=== PATIENT | female | born 1935 | race Asian ===

== ENCOUNTER 2019-07-10 17:05 | Inpatient (IN) | payer MEDICARE, OTHER ==
[~2019-07-10] VITALS: Ht 162.6 cm; Wt 52.2 kg
[2019-07-10] MEDS ORDERED: LEVO50 PO (18:39)
[2019-07-10] MEDS ORDERED: FOLI1 PO (18:39)
[2019-07-10] MEDS ORDERED: FOLI1TAB85 PO (18:39)
[2019-07-10] MEDS ORDERED: NUT.237L66 PO (18:39)
[2019-07-10] MEDS ORDERED: MIRT-92 PO (18:39)
[2019-07-10] MEDS ORDERED: GUAI120S43 PO (18:39)
[2019-07-10] MEDS ORDERED: HYDR-3831 PO (18:39)
[2019-07-10] MEDS ORDERED: MACR100 PO (18:39)
[2019-07-10] MEDS ORDERED: CLOP75TA3 PO (18:39)
[2019-07-10] MEDS ORDERED: ASPI-728 PO (18:39)
[2019-07-10] MEDS ORDERED: SENN8.6T20 PO (18:39)
[2019-07-10] MEDS ORDERED: SEVE0.8P6 PO (18:39)
[2019-07-10] MEDS ORDERED: LACT30L PO (18:39)
[2019-07-10] MEDS ORDERED: ADV100 IH (18:39)
[2019-07-10] MEDS ORDERED: MORPHINE SULFATE 2 MG/ML SYRINGE IVP PRN (19:15)
[2019-07-10] MEDS ORDERED: ACETAMINOPHEN 325 MG TABLET PO PRN (19:15)
[2019-07-10] MEDS ORDERED: DEXTROSE 50%-WATER 25 GM/50 ML SYRINGE IVP PRN (19:15)
[2019-07-10 20:57] LABS: BASOPHILS % (AUTO) 0.5 % (0.0-2.0); EOSINOPHILS % (AUTO) 1.8 % (1.0-6.0); HEMATOCRIT 36.2 % (36-46); HEMOGLOBIN 11.5 g/dL (12.0-16.0); LYMPHOCYTES # (AUTO) 0.9 K/uL (1.0-4.8); LYMPHOCYTES % (AUTO) 10.2 % (22.0-44.0); MEAN CORPUSCULAR HEMOGLOBIN 32.8 pg (26.0-34.0); MEAN CORPUSCULAR HGB CONC 31.8 G/dL (31.0-37.0); MEAN CORPUSCULAR VOLUME 103 fL (80-100); MONOCYTES # (AUTO) 0.6 K/uL (0.1-1.0); MONOCYTES % (AUTO) 7.1 % (2.0-9.0); NEUTROPHILS % (AUTO) 80.4 % (40.0-70.0); PLATELET COUNT (AUTO) 129 K/uL (150-450); RED BLOOD CELL COUNT(AUTO) 3.51 MIL/uL (4.00-5.20); RED CELL DISTRIBUTION WIDTH 21.4 % (11.5-14.5)
[2019-07-10] MEDS: DOCUSATE SODIUM 100 MG CAPSULE PO SCH (21:00)
[2019-07-10 21:05] LABS: CALCIUM, TOTAL 9.5 mg/dL (8.8-10.5); CREATININE 3.96 mg/dL (0.60-1.30); POTASSIUM 5.7 mmol/L (3.5-5.1)
[2019-07-11 02:40] VITALS: BP 114/64
[2019-07-11 04:22] VITALS: BP 102/56
[2019-07-11 08:13] VITALS: BP 99/49
[2019-07-11 08:24] LABS: CALCIUM, TOTAL 9.3 mg/dL (8.8-10.5); CREATININE 4.89 mg/dL (0.60-1.30)
[2019-07-11] MEDS ORDERED: SODIUM CHLORIDE 0.9% 1,000 ML IV ONE (08:30)
[2019-07-11] MEDS ORDERED: BACITRACIN 50,000 UNITS/VIAL ONE (08:40)
[2019-07-11] MEDS ORDERED: SODIUM CL IRRIG SOLN BAG 0 ML IRRIG ONE (08:40)
[2019-07-11] MEDS ORDERED: BUPIVACAINE HCL/PF 0.25% 30 ML VIAL ONE (08:40)
[2019-07-11] MEDS ORDERED: LIDOCAINE/PF 1% 30 ML VIAL ONE (08:40)
[2019-07-11 08:42] LABS: POTASSIUM 6.1 mmol/L (3.5-5.1)
[2019-07-11] MEDS: FAMOTIDINE 20 MG TABLET PO SCH (09:00)
[2019-07-11] MEDS: DOCUSATE SODIUM 100 MG CAPSULE PO SCH ×2 (09:00→21:00)
[2019-07-11 11:25] VITALS: BP 112/60
[2019-07-11 12:00] VITALS: BP 100/63
[2019-07-11] MEDS: HEPARIN SODIUM,PORCINE 5,000 UNITS/ML VIAL SQ SCH ×2 (12:08→21:00)
[2019-07-11] MEDS: INSULIN LISPRO 100 UNITS/ML SQ PRN (12:12)
[2019-07-11] MEDS ORDERED: HEPARIN SODIUM,PORCINE 1,000 UNITS/ML VIAL IVP ONE (18:25)
[2019-07-11] MEDS ORDERED: DiphenhydrAMINE HCL 50 MG/ML VIAL IM ONE (18:25)
[2019-07-11 20:44] VITALS: BP 90/55
[2019-07-11] MEDS ORDERED: SODIUM CHLORIDE 0.9% 500 ML IV ONE (21:30)
[2019-07-11] MEDS ORDERED: MIDODRINE HCL 5 MG TABLET PO PRN (21:30)
[2019-07-11 21:36] LABS: GLUCOMETER DEV NAME(LOC) 5S.2A; GLUCOSE,POINT OF CARE 172 MG/DL (70-110)
[2019-07-11 21:36] LABS: GLUCOMETER DEV NAME(LOC) 5S.2A; GLUCOSE,POINT OF CARE 153 MG/DL (70-110)
[2019-07-11] MEDS ORDERED: ALBUMIN HUMAN 25%-25GM/100ML 100 ML IV PRN (23:15)
[2019-07-12] VITALS (7 sets, daily range): BP systolic 99–114; BP diastolic 45–61
[2019-07-12 02:53] LABS: GLUCOMETER DEV NAME(LOC) 5N.2; GLUCOSE,POINT OF CARE 177 MG/DL (70-110)
[2019-07-12 02:53] LABS: GLUCOMETER DEV NAME(LOC) 5N.2; GLUCOSE,POINT OF CARE 157 MG/DL (70-110)
[2019-07-12] MEDS ORDERED: PNEUMOCOCCAL VACCINE POLYVALENT 0.5 ML VIAL [PPSV23] IM ONE (03:45)
[2019-07-12] MEDS ORDERED: INFLUENZA VIRUS VACCINE QVS 2019-20 (3YR+)/PF 60 MCG/0.5 ML SYRINGE IM ONE (03:45)
[2019-07-12] MEDS ORDERED: SODIUM CHLORIDE 0.9% 1,000 ML IV ONE (05:15)
[2019-07-12] MEDS ORDERED: SODIUM CL IRRIG SOLN BAG 3,000 ML IRRIG ONE (06:42)
[2019-07-12] MEDS ORDERED: BACITRACIN 50,000 UNITS/VIAL ONE (06:42)
[2019-07-12] MEDS ORDERED: BUPIVACAINE HCL/PF 0.25% 30 ML VIAL ONE (06:42)
[2019-07-12] MEDS ORDERED: LIDOCAINE/PF 1% 30 ML VIAL ONE ×2 (06:45→11:15)
[2019-07-12] MEDS ORDERED: SODIUM CHLORIDE 0.9% 1,000 ML IV SCH (06:45)
[2019-07-12] MEDS ORDERED: SODIUM CHLORIDE 0.9% 1,000 ML ONE (07:36)
[2019-07-12 07:46] LABS: BASOPHILS % (AUTO) 0.9 % (0.0-2.0); HEMATOCRIT 27.4 % (36-46); LYMPHOCYTES # (AUTO) 0.6 K/uL (1.0-4.8); LYMPHOCYTES % (AUTO) 9.5 % (22.0-44.0); MEAN CORPUSCULAR HEMOGLOBIN 32.8 pg (26.0-34.0); MEAN CORPUSCULAR HGB CONC 31.7 G/dL (31.0-37.0); MEAN CORPUSCULAR VOLUME 104 fL (80-100); MONOCYTES # (AUTO) 0.4 K/uL (0.1-1.0); MONOCYTES % (AUTO) 6.3 % (2.0-9.0); NEUTROPHILS # (AUTO) 4.9 K/uL (1.8-7.7); NEUTROPHILS % (AUTO) 82.3 % (40.0-70.0); PLATELET COUNT (AUTO) 90 K/uL (150-450); RED BLOOD CELL COUNT(AUTO) 2.65 MIL/uL (4.00-5.20)
[2019-07-12 07:50] LABS: GLUCOMETER DEV NAME(LOC) 5N.2; GLUCOSE,POINT OF CARE 168 MG/DL (70-110)
[2019-07-12 07:56] LABS: CALCIUM, TOTAL 8.2 mg/dL (8.8-10.5); CREATININE 2.44 mg/dL (0.60-1.30); POTASSIUM 4.4 mmol/L (3.5-5.1)
[2019-07-12 08:01] LABS: ALBUMIN 2.8 g/dL (3.4-5.0); BILIRUBIN,TOTAL 0.7 mg/dL (0.1-1.0)
[2019-07-12 08:14] LABS: HEMOGLOBIN 8.7 g/dL (12.0-16.0)
[2019-07-12 08:25] LABS: INR 1.1 (0.9-1.1)
[2019-07-12] MEDS: DOCUSATE SODIUM 100 MG CAPSULE PO SCH ×2 (09:00→21:00)
[2019-07-12] MEDS: FAMOTIDINE 20 MG TABLET PO SCH (09:00)
[2019-07-12] MEDS: EPOETIN ALFA 10,000 UNITS/ML VIAL SQ SCH (09:40)
[2019-07-12 10:10] LABS: % IRON SATURATION 14.8 % (22-44)
[2019-07-12] MEDS ORDERED: MICROFIBRILLAR COLLAGEN 1 GM PACKAGE TP ONE (11:25)
[2019-07-12 13:03] LABS: GLUCOMETER DEV NAME(LOC) 5S.2A; GLUCOSE,POINT OF CARE 128 MG/DL (70-110)
[2019-07-12] MEDS ORDERED: VANCOMYCIN HCL 1 GM/D5% WATER 200 ML IV PRN (16:00)
[2019-07-12] MEDS ORDERED: VANCOMYCIN HCL 1 GM/D5% WATER 200 ML IV ONE (16:00)
[2019-07-12 19:32] LABS: GLUCOMETER DEV NAME(LOC) 5N.2; GLUCOSE,POINT OF CARE 124 MG/DL (70-110)
[2019-07-12] MEDS: CefTAZidime PENTAHYDRATE 1 GM in DEXTROSE 5%-WATER 50 ML IV SCH (20:45)
[2019-07-13] VITALS (7 sets, daily range): BP systolic 98–124; BP diastolic 43–70
[2019-07-13 05:01] LABS: GLUCOMETER DEV NAME(LOC) 5N.2; GLUCOSE,POINT OF CARE 145 MG/DL (70-110)
[2019-07-13] MEDS: FAMOTIDINE 20 MG TABLET PO SCH (08:54)
[2019-07-13] MEDS: DOCUSATE SODIUM 100 MG CAPSULE PO SCH ×2 (08:54→21:00)
[2019-07-13 12:18] LABS: BASOPHILS % (AUTO) 0.6 % (0.0-2.0); EOSINOPHILS % (AUTO) 0.3 % (1.0-6.0); HEMATOCRIT 35.3 % (36-46); HEMOGLOBIN 11.2 g/dL (12.0-16.0); LYMPHOCYTES # (AUTO) 0.7 K/uL (1.0-4.8); LYMPHOCYTES % (AUTO) 6.8 % (22.0-44.0); MEAN CORPUSCULAR HEMOGLOBIN 32.7 pg (26.0-34.0); MEAN CORPUSCULAR HGB CONC 31.7 G/dL (31.0-37.0); MEAN CORPUSCULAR VOLUME 103 fL (80-100); MONOCYTES # (AUTO) 0.7 K/uL (0.1-1.0); MONOCYTES % (AUTO) 7.2 % (2.0-9.0); NEUTROPHILS # (AUTO) 8.6 K/uL (1.8-7.7); NEUTROPHILS % (AUTO) 85.1 % (40.0-70.0); PLATELET COUNT (AUTO) 106 K/uL (150-450); RED BLOOD CELL COUNT(AUTO) 3.43 MIL/uL (4.00-5.20); RED CELL DISTRIBUTION WIDTH 20.8 % (11.5-14.5)
[2019-07-13 12:31] LABS: BILIRUBIN,TOTAL 0.7 mg/dL (0.1-1.0); CALCIUM, TOTAL 8.5 mg/dL (8.8-10.5); CREATININE 4.45 mg/dL (0.60-1.30); MAGNESIUM 2.4 mg/dL (1.80-2.40); POTASSIUM 5.4 mmol/L (3.5-5.1); TOTAL PROTEIN, SERUM 6.1 g/dL (6.4-8.2); VANCOMYCIN,RANDOM 18.1 mcg/mL (25.0-50.0)
[2019-07-13] MEDS ORDERED: SODIUM CHLORIDE 0.9% 1,000 ML ONE (14:22)
[2019-07-13 17:26] LABS: GLUCOMETER DEV NAME(LOC) 5N.2; GLUCOSE,POINT OF CARE 126 MG/DL (70-110)
[2019-07-13 17:26] LABS: GLUCOMETER DEV NAME(LOC) 5N.2; GLUCOSE,POINT OF CARE 113 MG/DL (70-110)
[2019-07-13 20:52] LABS: GLUCOMETER DEV NAME(LOC) 5S.2A; GLUCOSE,POINT OF CARE 120 MG/DL (70-110)
[2019-07-13] MEDS: CefTAZidime PENTAHYDRATE 1 GM in DEXTROSE 5%-WATER 50 ML IV SCH (21:55)
[2019-07-14] VITALS (7 sets, daily range): BP systolic 72–108; BP diastolic 42–58
[2019-07-14 06:50] LABS: GLUCOMETER DEV NAME(LOC) 5S.2A; GLUCOSE,POINT OF CARE 108 MG/DL (70-110)
[2019-07-14 06:50] LABS: GLUCOMETER DEV NAME(LOC) 5S.2A; GLUCOSE,POINT OF CARE 98 MG/DL (70-110)
[2019-07-14] MEDS ORDERED: VANCOMYCIN HCL 1 GM/D5% WATER 200 ML IV ONE (08:00)
[2019-07-14] MEDS: FAMOTIDINE 20 MG TABLET PO SCH (09:00)
[2019-07-14] MEDS: DOCUSATE SODIUM 100 MG CAPSULE PO SCH ×2 (09:00→21:00)
[2019-07-14 09:22] LABS: BASOPHILS % (AUTO) 0.6 % (0.0-2.0); EOSINOPHILS % (AUTO) 1.6 % (1.0-6.0); HEMATOCRIT 34.2 % (36-46); HEMOGLOBIN 11.2 g/dL (12.0-16.0); LYMPHOCYTES # (AUTO) 0.5 K/uL (1.0-4.8); LYMPHOCYTES % (AUTO) 5.9 % (22.0-44.0); MEAN CORPUSCULAR HEMOGLOBIN 33.3 pg (26.0-34.0); MEAN CORPUSCULAR HGB CONC 32.6 G/dL (31.0-37.0); MEAN CORPUSCULAR VOLUME 102 fL (80-100); MONOCYTES # (AUTO) 0.6 K/uL (0.1-1.0); MONOCYTES % (AUTO) 6.5 % (2.0-9.0); NEUTROPHILS # (AUTO) 7.4 K/uL (1.8-7.7); PLATELET COUNT (AUTO) 107 K/uL (150-450); RED BLOOD CELL COUNT(AUTO) 3.35 MIL/uL (4.00-5.20); RED CELL DISTRIBUTION WIDTH 19.8 % (11.5-14.5)
[2019-07-14 09:24] LABS: NEUTROPHILS % (AUTO) 85.4 % (40.0-70.0)
[2019-07-14 09:40] LABS: ALBUMIN 2.6 g/dL (3.4-5.0); BILIRUBIN,TOTAL 0.7 mg/dL (0.1-1.0); CALCIUM, TOTAL 8.3 mg/dL (8.8-10.5); CREATININE 3.04 mg/dL (0.60-1.30); MAGNESIUM 1.8 mg/dL (1.80-2.40)
[2019-07-14] MEDS ORDERED: *CLINICAL-RX DOSING [ENTER DRUG IN COMMENTS] CLINICAL ONE (13:45)
[2019-07-14] MEDS ORDERED: SULFAMETHOX/TRIMETH DS 800-160 MG/TABLET PO SCH (13:45)
[2019-07-14] MEDS ORDERED: CefoTEtan DISOD 1 GM/DEXTROSE 50 ML IV ONE (16:00)
[2019-07-14] MEDS ORDERED: SODIUM CHLORIDE 0.9% 500 ML IV ONE (17:30)
[2019-07-14] MEDS: SULFAMETHOX/TRIMETH DS 800-160 MG/TABLET PO SCH (21:19)
[2019-07-14 22:19] LABS: GLUCOMETER DEV NAME(LOC) 5N.2; GLUCOSE,POINT OF CARE 149 MG/DL (70-110)
[2019-07-14 22:29] LABS: GLUCOMETER DEV NAME(LOC) 5S.2A; GLUCOSE,POINT OF CARE 210 MG/DL (70-110)
[2019-07-15 04:52] VITALS: BP 100/62
[2019-07-15 06:18] LABS: BASOPHILS % (AUTO) 0.7 % (0.0-2.0); EOSINOPHILS % (AUTO) 2.6 % (1.0-6.0); HEMATOCRIT 36.9 % (36-46); HEMOGLOBIN 11.8 g/dL (12.0-16.0); LYMPHOCYTES # (AUTO) 0.7 K/uL (1.0-4.8); LYMPHOCYTES % (AUTO) 7.5 % (22.0-44.0); MEAN CORPUSCULAR HEMOGLOBIN 32.6 pg (26.0-34.0); MEAN CORPUSCULAR HGB CONC 31.9 G/dL (31.0-37.0); MEAN CORPUSCULAR VOLUME 102 fL (80-100); MONOCYTES # (AUTO) 0.6 K/uL (0.1-1.0); MONOCYTES % (AUTO) 6.8 % (2.0-9.0); NEUTROPHILS # (AUTO) 7.6 K/uL (1.8-7.7); NEUTROPHILS % (AUTO) 82.4 % (40.0-70.0); PLATELET COUNT (AUTO) 102 K/uL (150-450); RED BLOOD CELL COUNT(AUTO) 3.61 MIL/uL (4.00-5.20); RED CELL DISTRIBUTION WIDTH 20.7 % (11.5-14.5)
[2019-07-15 06:51] LABS: ALBUMIN 3.1 g/dL (3.4-5.0); BILIRUBIN,TOTAL 0.5 mg/dL (0.1-1.0); CALCIUM, TOTAL 8.9 mg/dL (8.8-10.5); CREATININE 4.3 mg/dL (0.60-1.30); MAGNESIUM 2.2 mg/dL (1.80-2.40); PHOSPHORUS 4.9 mg/dL (2.5-4.9); TOTAL PROTEIN, SERUM 6.5 g/dL (6.4-8.2)
[2019-07-15 07:57] VITALS: BP 113/58
[2019-07-15] MEDS: FAMOTIDINE 20 MG TABLET PO SCH (09:00)
[2019-07-15] MEDS: DOCUSATE SODIUM 100 MG CAPSULE PO SCH ×2 (09:00→21:00)
[2019-07-15] MEDS: SULFAMETHOX/TRIMETH DS 800-160 MG/TABLET PO SCH (09:24)
[2019-07-15] MEDS: EPOETIN ALFA 10,000 UNITS/ML VIAL SQ SCH (09:25)
[2019-07-15 11:33] VITALS: BP 105/55
[2019-07-15] MEDS: INSULIN LISPRO 100 UNITS/ML SQ PRN ×2 (12:14→21:15)
[2019-07-15 15:46] VITALS: BP 101/57
[2019-07-15] MEDS: CefoTEtan DISODIUM 0.5 GM in DEXTROSE 5%-WATER 50 ML IV SCH (17:42)
[2019-07-15 20:06] VITALS: BP 96/63
[2019-07-15 22:04] LABS: GLUCOMETER DEV NAME(LOC) 5N.2; GLUCOSE,POINT OF CARE 241 MG/DL (70-110)
[2019-07-16 00:08] VITALS: BP 100/52
[2019-07-16 04:31] VITALS: BP 125/66
[2019-07-16] MEDS: INSULIN LISPRO 100 UNITS/ML SQ PRN ×2 (06:30→18:04)
[2019-07-16 06:34] LABS: BASOPHILS % (AUTO) 0.5 % (0.0-2.0); EOSINOPHILS % (AUTO) 2.3 % (1.0-6.0); HEMATOCRIT 34.6 % (36-46); HEMOGLOBIN 11.1 g/dL (12.0-16.0); LYMPHOCYTES # (AUTO) 0.6 K/uL (1.0-4.8); LYMPHOCYTES % (AUTO) 5.9 % (22.0-44.0); MEAN CORPUSCULAR HEMOGLOBIN 32.7 pg (26.0-34.0); MEAN CORPUSCULAR HGB CONC 32.1 G/dL (31.0-37.0); MEAN CORPUSCULAR VOLUME 102 fL (80-100); MONOCYTES # (AUTO) 0.6 K/uL (0.1-1.0); MONOCYTES % (AUTO) 5.9 % (2.0-9.0); NEUTROPHILS # (AUTO) 8.4 K/uL (1.8-7.7); PLATELET COUNT (AUTO) 111 K/uL (150-450); RED BLOOD CELL COUNT(AUTO) 3.39 MIL/uL (4.00-5.20); RED CELL DISTRIBUTION WIDTH 20.1 % (11.5-14.5)
[2019-07-16 06:48] LABS: NEUTROPHILS % (AUTO) 85.4 % (40.0-70.0)
[2019-07-16 07:08] LABS: ALBUMIN 2.9 g/dL (3.4-5.0); BILIRUBIN,TOTAL 0.4 mg/dL (0.1-1.0); CALCIUM, TOTAL 9.4 mg/dL (8.8-10.5); CREATININE 5.42 mg/dL (0.60-1.30); MAGNESIUM 2.4 mg/dL (1.80-2.40); POTASSIUM 4.1 mmol/L (3.5-5.1)
[2019-07-16 07:29] VITALS: BP 123/73
[2019-07-16] MEDS: DOCUSATE SODIUM 100 MG CAPSULE PO SCH ×2 (08:24→20:09)
[2019-07-16] MEDS: SULFAMETHOX/TRIMETH DS 800-160 MG/TABLET PO SCH (08:24)
[2019-07-16] MEDS: FAMOTIDINE 20 MG TABLET PO SCH (08:24)
[2019-07-16 11:47] LABS: GLUCOMETER DEV NAME(LOC) 5S.2A; GLUCOSE,POINT OF CARE 237 MG/DL (70-110)
[2019-07-16 11:47] LABS: GLUCOMETER DEV NAME(LOC) 5S.2A; GLUCOSE,POINT OF CARE 137 MG/DL (70-110)
[2019-07-16 11:47] LABS: GLUCOMETER DEV NAME(LOC) 5S.2A; GLUCOSE,POINT OF CARE 129 MG/DL (70-110)
[2019-07-16 11:48] LABS: GLUCOMETER DEV NAME(LOC) 5S.2A; GLUCOSE,POINT OF CARE 148 MG/DL (70-110)
[2019-07-16 11:49] LABS: GLUCOMETER DEV NAME(LOC) 5N.2; GLUCOSE,POINT OF CARE 139 MG/DL (70-110)
[2019-07-16 12:11] VITALS: BP 97/53
[2019-07-16 15:16] VITALS: BP 97/48
[2019-07-16] MEDS ORDERED: SODIUM CHLORIDE 0.9% 100 ML ONE (16:27)
[2019-07-16] MEDS: CefoTEtan DISOD 1 GM/DEXTROSE 50 ML IV SCH (16:34)
[2019-07-16 19:51] LABS: GLUCOMETER DEV NAME(LOC) 5S.2A; GLUCOSE,POINT OF CARE 190 MG/DL (70-110)
[2019-07-16] MEDS: HEPARIN SODIUM,PORCINE 5,000 UNITS/ML VIAL SQ SCH (20:09)
[2019-07-16 21:13] VITALS: BP 102/58
[2019-07-17] VITALS (8 sets, daily range): BP systolic 89–104; BP diastolic 49–70
[2019-07-17 08:29] LABS: GLUCOMETER DEV NAME(LOC) 5S.2A; GLUCOSE,POINT OF CARE 136 MG/DL (70-110)
[2019-07-17] MEDS: DOCUSATE SODIUM 100 MG CAPSULE PO SCH ×2 (08:39→20:43)
[2019-07-17] MEDS: EPOETIN ALFA 10,000 UNITS/ML VIAL SQ SCH (08:39)
[2019-07-17] MEDS: FAMOTIDINE 20 MG TABLET PO SCH (08:39)
[2019-07-17] MEDS: SULFAMETHOX/TRIMETH DS 800-160 MG/TABLET PO SCH (08:39)
[2019-07-17] MEDS: HEPARIN SODIUM,PORCINE 5,000 UNITS/ML VIAL SQ SCH ×2 (08:48→20:56)
[2019-07-17 11:29] LABS: GLUCOMETER DEV NAME(LOC) 5N.2; GLUCOSE,POINT OF CARE 109 MG/DL (70-110)
[2019-07-17] MEDS: INSULIN LISPRO 100 UNITS/ML SQ PRN (11:35)
[2019-07-17] MEDS ORDERED: SODIUM CHLORIDE 0.9% 250 ML IV ONE (13:47)
[2019-07-17 16:36] LABS: GLUCOMETER DEV NAME(LOC) 5N.2; GLUCOSE,POINT OF CARE 231 MG/DL (70-110)
[2019-07-17] MEDS: CefoTEtan DISODIUM 0.5 GM in DEXTROSE 5%-WATER 50 ML IV SCH (17:02)
[2019-07-17 17:36] LABS: GLUCOMETER DEV NAME(LOC) 5N.2; GLUCOSE,POINT OF CARE 147 MG/DL (70-110)
[2019-07-18 04:18] VITALS: BP 114/61
[2019-07-18 06:21] LABS: GLUCOMETER DEV NAME(LOC) 5N.2; GLUCOSE,POINT OF CARE 208 MG/DL (70-110)
[2019-07-18 06:22] LABS: GLUCOMETER DEV NAME(LOC) 5S.2A; GLUCOSE,POINT OF CARE 126 MG/DL (70-110)
[2019-07-18 06:53] LABS: EOSINOPHILS % (AUTO) 4.8 % (1.0-6.0); HEMATOCRIT 36.3 % (36-46); HEMOGLOBIN 11.4 g/dL (12.0-16.0); LYMPHOCYTES # (AUTO) 0.8 K/uL (1.0-4.8); LYMPHOCYTES % (AUTO) 13.3 % (22.0-44.0); MEAN CORPUSCULAR HEMOGLOBIN 32.1 pg (26.0-34.0); MEAN CORPUSCULAR HGB CONC 31.4 G/dL (31.0-37.0); MEAN CORPUSCULAR VOLUME 102 fL (80-100); MONOCYTES # (AUTO) 0.6 K/uL (0.1-1.0); MONOCYTES % (AUTO) 9.8 % (2.0-9.0); NEUTROPHILS # (AUTO) 4.3 K/uL (1.8-7.7); NEUTROPHILS % (AUTO) 71.1 % (40.0-70.0); PLATELET COUNT (AUTO) 103 K/uL (150-450); RED BLOOD CELL COUNT(AUTO) 3.54 MIL/uL (4.00-5.20)
[2019-07-18] MEDS ORDERED: SODIUM CHLORIDE 0.9% 2,000 ML ONE (08:21)
[2019-07-18] MEDS: SULFAMETHOX/TRIMETH DS 800-160 MG/TABLET PO SCH ×2 (08:26→16:03)
[2019-07-18] MEDS: DOCUSATE SODIUM 100 MG CAPSULE PO SCH ×2 (08:26→21:34)
[2019-07-18] MEDS: FAMOTIDINE 20 MG TABLET PO SCH (08:27)
[2019-07-18] MEDS: HEPARIN SODIUM,PORCINE 5,000 UNITS/ML VIAL SQ SCH ×2 (08:27→21:35)
[2019-07-18 08:28] LABS: ALBUMIN 2.7 g/dL (3.4-5.0); BILIRUBIN,TOTAL 0.4 mg/dL (0.1-1.0); CALCIUM, TOTAL 9.6 mg/dL (8.8-10.5); CREATININE 5.94 mg/dL (0.60-1.30); MAGNESIUM 2.9 mg/dL (1.80-2.40); POTASSIUM 4.8 mmol/L (3.5-5.1); TOTAL PROTEIN, SERUM 6.4 g/dL (6.4-8.2)
[2019-07-18 09:40] VITALS: BP 105/58
[2019-07-18 11:02] VITALS: BP 83/54
[2019-07-18 14:34] VITALS: BP 103/50
[2019-07-18 16:07] VITALS: BP 102/51
[2019-07-18] MEDS: CefoTEtan DISOD 1 GM/DEXTROSE 50 ML IV SCH (16:11)
[2019-07-18] MEDS: INSULIN LISPRO 100 UNITS/ML SQ PRN ×2 (17:18→21:34)
[2019-07-18 18:23] LABS: GLUCOMETER DEV NAME(LOC) 5S.2A; GLUCOSE,POINT OF CARE 300 MG/DL (70-110)
[2019-07-18 18:23] LABS: GLUCOMETER DEV NAME(LOC) 5S.2A; GLUCOSE,POINT OF CARE 114 MG/DL (70-110)
[2019-07-18 20:16] VITALS: BP 101/51
[2019-07-19 00:05] VITALS: BP 100/44
[2019-07-19 00:57] LABS: GLUCOMETER DEV NAME(LOC) 5N.2; GLUCOSE,POINT OF CARE 210 MG/DL (70-110)
[2019-07-19 04:56] VITALS: BP 105/60
[2019-07-19 05:30] LABS: GLUCOMETER DEV NAME(LOC) 5S.2A; GLUCOSE,POINT OF CARE 142 MG/DL (70-110)
[2019-07-19 06:05] LABS: GLUCOMETER DEV NAME(LOC) 5S.2A; GLUCOSE,POINT OF CARE 122 MG/DL (70-110)
[2019-07-19] MEDS: INSULIN LISPRO 100 UNITS/ML SQ PRN (06:05)
[2019-07-19 07:48] VITALS: BP 113/61
[2019-07-19] MEDS: FAMOTIDINE 20 MG TABLET PO SCH (08:39)
[2019-07-19] MEDS: EPOETIN ALFA 10,000 UNITS/ML VIAL SQ SCH (08:39)
[2019-07-19] MEDS: SULFAMETHOX/TRIMETH DS 800-160 MG/TABLET PO SCH (08:39)
[2019-07-19] MEDS: HEPARIN SODIUM,PORCINE 5,000 UNITS/ML VIAL SQ SCH (08:40)
[2019-07-19] MEDS: DOCUSATE SODIUM 100 MG CAPSULE PO SCH (08:41)
[2019-07-19] MEDS ORDERED: VITAMIN B COMP/VIT C/FOLIC ACID CAPSULE PO SCH (09:00)
[2019-07-19 12:03] VITALS: BP 98/55
[2019-07-19 15:20] VITALS: BP 104/59
[2019-07-20] MEDS ORDERED: CEFO1I IV (14:08)
[2019-07-20] MEDS ORDERED: CLOP75TA3 PO (14:08)
== END 2019-07-19 15:55 | DRG 616 ==
LOC: EMS 17:11 → 5S 07-11 03:07
PROVIDERS: ADMIT Internal Medicine; ATTEND Internal Medicine
PROC: 5A1D70Z Performance of Urinary Filtration, Intermittent, Less than 6 Hours Per Day (ICD-10-PCS; 2019-07-11)
PROC: 0Y6S0Z1 Detachment at Left 2nd Toe, High, Open Approach (ICD-10-PCS; 2019-07-12)
PROC: 0Y6U0Z1 Detachment at Left 3rd Toe, High, Open Approach (ICD-10-PCS; principal; 2019-07-12 07:30)
PROC: 5A1D70Z Performance of Urinary Filtration, Intermittent, Less than 6 Hours Per Day (ICD-10-PCS; 2019-07-13)
PROC: 5A1D70Z Performance of Urinary Filtration, Intermittent, Less than 6 Hours Per Day (ICD-10-PCS; 2019-07-16)
PROC: 5A1D70Z Performance of Urinary Filtration, Intermittent, Less than 6 Hours Per Day (ICD-10-PCS; 2019-07-18)
DX: E11.69 Type 2 diabetes mellitus with other specified complication (principal); E43 Unspecified severe protein-calorie malnutrition; E11.52 Type 2 diabetes mellitus with diabetic peripheral angiopathy with gangrene; Z68.1 Body mass index [BMI] 19.9 or less, adult; I47.1 Supraventricular tachycardia; M86.8X7 Other osteomyelitis, ankle and foot; I13.2 Hypertensive heart and chronic kidney disease with heart failure and with stage 5 chronic kidney disease, or end stage renal disease; I50.20 Unspecified systolic (congestive) heart failure; N18.6 End stage renal disease; N25.81 Secondary hyperparathyroidism of renal origin; E87.5 Hyperkalemia; F03.90 Unspecified dementia, unspecified severity, without behavioral disturbance, psychotic disturbance, mood disturbance, and anxiety; E78.5 Hyperlipidemia, unspecified; I48.91 Unspecified atrial fibrillation; E03.9 Hypothyroidism, unspecified; D63.1 Anemia in chronic kidney disease; Z66 Do not resuscitate; I49.5 Sick sinus syndrome; F32.9 Major depressive disorder, single episode, unspecified; J43.9 Emphysema, unspecified; I95.9 Hypotension, unspecified; E11.22 Type 2 diabetes mellitus with diabetic chronic kidney disease; E11.319 Type 2 diabetes mellitus with unspecified diabetic retinopathy without macular edema; I27.20 Pulmonary hypertension, unspecified; S92.512A Displaced fracture of proximal phalanx of left lesser toe(s), initial encounter for closed fracture; X58.XXXA Exposure to other specified factors, initial encounter; Z99.2 Dependence on renal dialysis; Z22.322 Carrier or suspected carrier of Methicillin resistant Staphylococcus aureus; Z79.4 Long term (current) use of insulin; Z83.3 Family history of diabetes mellitus; Z79.82 Long term (current) use of aspirin; Z79.51 Long term (current) use of inhaled steroids; Y93.89 Activity, other specified; Y92.89 Other specified places as the place of occurrence of the external cause; Y99.8 Other external cause status
CPT/HCPCS: 82271; 83540; 83550; 83735; 84100; 84132; 87070; 87081; 87205; 87340; 88305; 88311; 93005; 93306; J0690; J0713; J0885; J1200; J1644; J3370; J3490; J7030; J7040; J7050; J7060; P9046

== ENCOUNTER 2019-07-20 13:34 | Inpatient (IN) | payer MEDICARE, OTHER ==
[~2019-07-20] VITALS: Ht 160 cm; Wt 49.0 kg
[~2019-07-20 13:34] MED LIST: ADV100 IH; ASPI-728 PO; CLOP75TA3 PO; FOLI1 PO; FOLI1TAB85 PO; GUAI120S43 PO; HYDR-3831 PO; LACT30L PO; LEVO50 PO; MACR100 PO; MIRT-92 PO; NUT.237L66 PO; SENN8.6T20 PO; SEVE0.8P6 PO
[2019-07-20] MEDS ORDERED: CLOP75TA3 PO (14:08)
[2019-07-20] MEDS ORDERED: CEFO1I IV (14:08)
[2019-07-20 14:13] LABS: GLUCOSE,POINT OF CARE 201 MG/DL (70-110)
[2019-07-20 14:20] LABS: BASOPHILS % (AUTO) 1.6 % (0.0-2.0); EOSINOPHILS % (AUTO) 3.2 % (1.0-6.0); HEMATOCRIT 32.5 % (36-46); HEMOGLOBIN 10.2 g/dL (12.0-16.0); LYMPHOCYTES # (AUTO) 0.9 K/uL (1.0-4.8); LYMPHOCYTES % (AUTO) 15.5 % (22.0-44.0); MEAN CORPUSCULAR HEMOGLOBIN 32.5 pg (26.0-34.0); MEAN CORPUSCULAR HGB CONC 31.5 G/dL (31.0-37.0); MEAN CORPUSCULAR VOLUME 103 fL (80-100); MONOCYTES # (AUTO) 0.5 K/uL (0.1-1.0); MONOCYTES % (AUTO) 8.3 % (2.0-9.0); NEUTROPHILS # (AUTO) 4.1 K/uL (1.8-7.7); NEUTROPHILS % (AUTO) 71.4 % (40.0-70.0); PLATELET COUNT (AUTO) 113 K/uL (150-450); RED BLOOD CELL COUNT(AUTO) 3.15 MIL/uL (4.00-5.20); RED CELL DISTRIBUTION WIDTH 19.8 % (11.5-14.5)
[2019-07-20 14:29] LABS: CALCIUM, TOTAL 9.3 mg/dL (8.8-10.5); CREATININE 5.82 mg/dL (0.60-1.30); POTASSIUM 4.6 mmol/L (3.5-5.1)
[2019-07-20 14:35] LABS: ALBUMIN 2.8 g/dL (3.4-5.0); BILIRUBIN,TOTAL 0.3 mg/dL (0.1-1.0); TOTAL PROTEIN, SERUM 6.4 g/dL (6.4-8.2)
[2019-07-20] MEDS ORDERED: 0.9% SODIUM CHLORIDE 10 ML SYRINGE IVP PRN (15:00)
[2019-07-20] MEDS ORDERED: ONDANSETRON HCL 4 MG/2 ML VIAL IVP PRN (15:00)
[2019-07-20] MEDS ORDERED: ACETAMINOPHEN 325 MG TABLET PO PRN (15:00)
[2019-07-20] MEDS ORDERED: VITAMIN B COMP/VIT C/FOLIC ACID CAPSULE PO ONE (15:45)
[2019-07-20] MEDS ORDERED: CLOPIDOGREL BISULFATE 75 MG TABLET PO ONE (15:45)
[2019-07-20 17:34] VITALS: BP 98/50
[2019-07-20 20:17] VITALS: BP 103/55
[2019-07-21 00:15] VITALS: BP 96/54
[2019-07-21] MEDS ORDERED: LACTULOSE 20 GM/30 ML SOLUTION UDCUP PO PRN (00:30)
[2019-07-21] MEDS ORDERED: MAGNESIUM HYDROXIDE SUSPENSION 30 ML UDCUP PO PRN (00:45)
[2019-07-21] MEDS ORDERED: OxyCODONE HCL/ACETAMINOPHEN 5-325 MG TABLET PO PRN ×2 (00:45)
[2019-07-21] MEDS ORDERED: 0.9% SODIUM CHLORIDE 10 ML SYRINGE IVP PRN (00:45)
[2019-07-21] MEDS ORDERED: ACETAMINOPHEN 325 MG TABLET PO PRN (00:45)
[2019-07-21] MEDS ORDERED: ONDANSETRON HCL 4 MG/2 ML VIAL IVP PRN (00:45)
[2019-07-21] MEDS: DOCUSATE SODIUM 100 MG CAPSULE PO SCH ×3 (00:45→20:34)
[2019-07-21 04:48] VITALS: BP 106/58
[2019-07-21] MEDS: LEVOTHYROXINE SODIUM 50 MCG TABLET PO SCH (05:00)
[2019-07-21 07:02] LABS: BASOPHILS % (AUTO) 0.6 % (0.0-2.0); EOSINOPHILS % (AUTO) 3.6 % (1.0-6.0); HEMATOCRIT 30.9 % (36-46); HEMOGLOBIN 9.8 g/dL (12.0-16.0); LYMPHOCYTES # (AUTO) 0.7 K/uL (1.0-4.8); LYMPHOCYTES % (AUTO) 11.4 % (22.0-44.0); MEAN CORPUSCULAR HEMOGLOBIN 32.6 pg (26.0-34.0); MEAN CORPUSCULAR HGB CONC 31.8 G/dL (31.0-37.0); MEAN CORPUSCULAR VOLUME 103 fL (80-100); MONOCYTES # (AUTO) 0.6 K/uL (0.1-1.0); MONOCYTES % (AUTO) 9.2 % (2.0-9.0); NEUTROPHILS # (AUTO) 4.9 K/uL (1.8-7.7); NEUTROPHILS % (AUTO) 75.2 % (40.0-70.0); PLATELET COUNT (AUTO) 109 K/uL (150-450); RED CELL DISTRIBUTION WIDTH 20.1 % (11.5-14.5)
[2019-07-21 07:23] LABS: ALBUMIN 2.7 g/dL (3.4-5.0); BILIRUBIN,TOTAL 0.3 mg/dL (0.1-1.0); CALCIUM, TOTAL 9.4 mg/dL (8.8-10.5); CREATININE 6.43 mg/dL (0.60-1.30); POTASSIUM 4.6 mmol/L (3.5-5.1); TOTAL PROTEIN, SERUM 6.2 g/dL (6.4-8.2)
[2019-07-21 07:35] VITALS: BP 112/64
[2019-07-21] MEDS: FOLIC ACID 1 MG TABLET PO SCH (08:40)
[2019-07-21] MEDS: VITAMIN B COMP/VIT C/FOLIC ACID CAPSULE PO SCH (08:40)
[2019-07-21] MEDS: CLOPIDOGREL BISULFATE 75 MG TABLET PO SCH (08:40)
[2019-07-21] MEDS: ASPIRIN 81 MG CHEWABLE TABLET PO SCH (08:41)
[2019-07-21] MEDS: FAMOTIDINE 10 MG/ML 2 ML VIAL IVP SCH (08:41)
[2019-07-21] MEDS: SENNA 187 MG TABLET PO SCH (08:50)
[2019-07-21 11:46] VITALS: BP 102/54
[2019-07-21] MEDS: SULFAMETHOX/TRIMETH DS 800-160 MG/TABLET PO SCH (12:08)
[2019-07-21 16:31] VITALS: BP 106/59
[2019-07-21 19:29] VITALS: BP 112/57
[2019-07-21 19:31] LABS: GLUCOMETER DEV NAME(LOC) 5S.2A; GLUCOSE,POINT OF CARE 233 MG/DL (70-110)
[2019-07-21] MEDS: MIRTAZAPINE 15 MG TABLET PO SCH ×2 (20:30→20:34)
[2019-07-22] VITALS (7 sets, daily range): BP systolic 102–130; BP diastolic 59–85
[2019-07-22] MEDS: LEVOTHYROXINE SODIUM 50 MCG TABLET PO SCH (06:21)
[2019-07-22 06:42] LABS: GLUCOMETER DEV NAME(LOC) 5N.2; GLUCOSE,POINT OF CARE 201 MG/DL (70-110)
[2019-07-22] MEDS: CLOPIDOGREL BISULFATE 75 MG TABLET PO SCH (09:25)
[2019-07-22] MEDS: VITAMIN B COMP/VIT C/FOLIC ACID CAPSULE PO SCH (09:25)
[2019-07-22] MEDS: SENNA 187 MG TABLET PO SCH (09:26)
[2019-07-22] MEDS: SULFAMETHOX/TRIMETH DS 800-160 MG/TABLET PO SCH (09:27)
[2019-07-22] MEDS: DOCUSATE SODIUM 100 MG CAPSULE PO SCH ×2 (09:27→21:00)
[2019-07-22] MEDS: ASPIRIN 81 MG CHEWABLE TABLET PO SCH (09:27)
[2019-07-22] MEDS: FOLIC ACID 1 MG TABLET PO SCH (09:27)
[2019-07-22] MEDS: FAMOTIDINE 10 MG/ML 2 ML VIAL IVP SCH (09:28)
[2019-07-22 10:05] LABS: BASOPHILS % (AUTO) 0.6 % (0.0-2.0); EOSINOPHILS % (AUTO) 3.7 % (1.0-6.0); HEMATOCRIT 35.8 % (36-46); HEMOGLOBIN 11.2 g/dL (12.0-16.0); LYMPHOCYTES # (AUTO) 0.7 K/uL (1.0-4.8); LYMPHOCYTES % (AUTO) 10.9 % (22.0-44.0); MEAN CORPUSCULAR HEMOGLOBIN 32.3 pg (26.0-34.0); MEAN CORPUSCULAR HGB CONC 31.3 G/dL (31.0-37.0); MEAN CORPUSCULAR VOLUME 103 fL (80-100); MONOCYTES # (AUTO) 0.6 K/uL (0.1-1.0); MONOCYTES % (AUTO) 8.4 % (2.0-9.0); NEUTROPHILS # (AUTO) 5.1 K/uL (1.8-7.7); NEUTROPHILS % (AUTO) 76.4 % (40.0-70.0); PLATELET COUNT (AUTO) 120 K/uL (150-450); RED BLOOD CELL COUNT(AUTO) 3.47 MIL/uL (4.00-5.20); RED CELL DISTRIBUTION WIDTH 20.7 % (11.5-14.5)
[2019-07-22 10:21] LABS: CALCIUM, TOTAL 10.5 mg/dL (8.8-10.5); CREATININE 7.5 mg/dL (0.60-1.30); POTASSIUM 5.7 mmol/L (3.5-5.1)
[2019-07-22 11:07] LABS: INR 0.9 (0.9-1.1); PROTHROMBIN TIME 9.6 SEC (9.4-11.6)
[2019-07-22] MEDS ORDERED: SODIUM ZIRCONIUM CYCLOSILICATE 5 GM POWDER PACKET PO ONE (11:15)
[2019-07-22] MEDS ORDERED: LIDOCAINE/PF 1% 30 ML VIAL ONE (14:26)
[2019-07-22] MEDS ORDERED: HEPARIN SODIUM 1000 UNITS/NS 500 ML ONE (14:27)
[2019-07-22] MEDS ORDERED: SODIUM BICARBONATE 50 MEQ/50 ML VIAL ONE (14:27)
[2019-07-22] MEDS ORDERED: IOHEXOL 300 MG/ML 100 ML VIAL ONE (14:42)
[2019-07-22] MEDS ORDERED: DEXTROSE 50%-WATER 25 GM/50 ML SYRINGE IVP PRN (15:00)
[2019-07-22] MEDS ORDERED: INSULIN LISPRO 100 UNITS/ML SQ PRN (15:00)
[2019-07-22] MEDS ORDERED: FLUMAZENIL 0.1 MG/ML 5 ML VIAL IVP ONE (15:30)
[2019-07-22] MEDS ORDERED: NALOXONE HCL 0.4 MG/ML VIAL ONE (15:30)
[2019-07-22] MEDS ORDERED: MIDAZOLAM HCL 2 MG/2 ML VIAL ONE (15:30)
[2019-07-22] MEDS ORDERED: HEPARIN SODIUM,PORCINE 5,000 UNITS/ML VIAL ONE (15:30)
[2019-07-22] MEDS ORDERED: FentaNYL CITRATE-PF 100 MCG/2 ML VIAL ONE (15:30)
[2019-07-22] MEDS ORDERED: ALTEPLASE 2 MG/VIAL MISC ONE (15:45)
[2019-07-22] MEDS ORDERED: SODIUM CHLORIDE 0.9% 1,000 ML ONE (19:22)
[2019-07-22] MEDS: MIRTAZAPINE 15 MG TABLET PO SCH (22:15)
[2019-07-23 00:38] VITALS: BP 105/64
[2019-07-23 05:27] VITALS: BP 103/57
[2019-07-23] MEDS: LEVOTHYROXINE SODIUM 50 MCG TABLET PO SCH (05:33)
[2019-07-23 07:37] VITALS: BP 126/54
[2019-07-23] MEDS: SULFAMETHOX/TRIMETH DS 800-160 MG/TABLET PO SCH (08:14)
[2019-07-23] MEDS: VITAMIN B COMP/VIT C/FOLIC ACID CAPSULE PO SCH (08:14)
[2019-07-23] MEDS: CLOPIDOGREL BISULFATE 75 MG TABLET PO SCH (08:14)
[2019-07-23] MEDS: ASPIRIN 81 MG CHEWABLE TABLET PO SCH (08:14)
[2019-07-23] MEDS: FOLIC ACID 1 MG TABLET PO SCH (08:15)
[2019-07-23] MEDS: FAMOTIDINE 10 MG/ML 2 ML VIAL IVP SCH (08:15)
[2019-07-23] MEDS: DOCUSATE SODIUM 100 MG CAPSULE PO SCH (08:15)
[2019-07-23] MEDS: SENNA 187 MG TABLET PO SCH (08:15)
[2019-07-23] MEDS ORDERED: SODIUM CHLORIDE 0.9% 2,000 ML ONE (08:30)
[2019-07-23] MEDS ORDERED: EPOETIN ALFA 10,000 UNITS/ML 2 ML VIAL SQ SCH (09:00)
[2019-07-23 11:18] VITALS: BP 98/58
[2019-07-23 11:59] LABS: GLUCOMETER DEV NAME(LOC) 5N.2; GLUCOSE,POINT OF CARE 123 MG/DL (70-110)
[2019-07-23 12:27] LABS: GLUCOMETER DEV NAME(LOC) 5S.2A; GLUCOSE,POINT OF CARE 104 MG/DL (70-110)
[2019-07-23 12:27] LABS: GLUCOMETER DEV NAME(LOC) 5S.2A; GLUCOSE,POINT OF CARE 141 MG/DL (70-110)
[2019-07-23] MEDS ORDERED: CefoTEtan DISOD 1 GM/DEXTROSE 50 ML IV PRN (13:00)
[2019-07-23 15:35] VITALS: BP 101/57
[2019-07-23] MEDS ORDERED: SODIUM CHLORIDE 0.9% 250 ML IV ONE (15:53)
[2019-07-23] MEDS ORDERED: SODIUM CL IRRIG SOLN BOTTLE 250 ML IRRIG ONE (17:15)
[2019-07-23 18:30] VITALS: BP 92/47
[2019-07-24] MEDS ORDERED: -HEMODIALYSIS NOTE- MISC SCH (09:00)
[2019-07-24 15:29] LABS: GLUCOMETER DEV NAME(LOC) 5S.2A; GLUCOSE,POINT OF CARE 129 MG/DL (70-110)
== END 2019-07-23 18:30 | DRG 314 ==
LOC: EMS 13:35 → 5S 14:53
PROVIDERS: ADMIT Internal Medicine; ATTEND Internal Medicine
PROC: 5A1D70Z Performance of Urinary Filtration, Intermittent, Less than 6 Hours Per Day (ICD-10-PCS; principal; 2019-07-22)
PROC: 5A1D70Z Performance of Urinary Filtration, Intermittent, Less than 6 Hours Per Day (ICD-10-PCS; 2019-07-23)
DX: T82.510A Breakdown (mechanical) of surgically created arteriovenous fistula, initial encounter (principal); N18.6 End stage renal disease; I13.2 Hypertensive heart and chronic kidney disease with heart failure and with stage 5 chronic kidney disease, or end stage renal disease; E03.9 Hypothyroidism, unspecified; F03.90 Unspecified dementia, unspecified severity, without behavioral disturbance, psychotic disturbance, mood disturbance, and anxiety; F32.9 Major depressive disorder, single episode, unspecified; E11.22 Type 2 diabetes mellitus with diabetic chronic kidney disease; I50.9 Heart failure, unspecified; E11.40 Type 2 diabetes mellitus with diabetic neuropathy, unspecified; J43.9 Emphysema, unspecified; D63.1 Anemia in chronic kidney disease; I48.91 Unspecified atrial fibrillation; I49.5 Sick sinus syndrome; E87.5 Hyperkalemia; Y83.8 Other surgical procedures as the cause of abnormal reaction of the patient, or of later complication, without mention of misadventure at the time of the procedure; Z83.3 Family history of diabetes mellitus; Z89.432 Acquired absence of left foot; Z99.2 Dependence on renal dialysis; Y92.89 Other specified places as the place of occurrence of the external cause
CPT/HCPCS: 87081; 93005; J0885; J1644; J2250; J2310; J2997; J3010; J3490; J7030; J7050; Q9967